=== PATIENT | male | born 1960 | race Caucasian/White ===

== ENCOUNTER → 2025-03-14 | Outpatient (REF) | payer OTHER ==
[2025-03-14 12:40] LABS: ALBUMIN 3.7 G/DL (3.2-5.2); BILIRUBIN,TOTAL 0.5 MG/DL (0.3-1.2); CALCIUM LEVEL 9.6 MG/DL (8.3-10.6); CHOLESTEROL RISK RATIO 2.6 (<5); CREATININE FOR GFR 1.04 MG/DL (0.70-1.30); GLOMERULAR FILTRATION RATE 80.7 (>49); HDL CHOLESTEROL 50.6 MG/DL (>40); NON-HDL-C 81.4 MG/DL; POTASSIUM SERUM 4.8 MMOL/L (3.5-5.1); TOTAL PROTEIN 6.9 G/DL (5.7-8.2)
[2025-03-14 12:43] LABS: THYROID STIMULATING HORMONE 0.953 uIU/ML (0.55-4.78)
[2025-03-14 12:46] LABS: HEMOGLOBIN A1c 6.9 % (4.0-6.0)
== END ==
LOC: M LAB REF 11:47
PROVIDERS: ATTEND Family Medicine Addiction Medicine
DX: E11.9 Type 2 diabetes mellitus without complications (principal)

== ENCOUNTER → 2025-06-06 | Outpatient (CLI) | payer OTHER | LOC: M RAD 07:22 | PROVIDERS: ATTEND Internal Medicine | DX: I70.203 Unspecified atherosclerosis of native arteries of extremities, bilateral legs (principal); I71.02 Dissection of abdominal aorta ==